=== PATIENT | male | born 1995 | race Caucasian/White ===

== ENCOUNTER 2017-12-28 06:18 | Emergency (ER) | payer SELFPAY ==
--- NOTE | 2017-12-28 06:44 | EDM.PDOC ---
ED HPI GENERAL MEDICAL PROBLEM - General Chief Complaint: ENT Problem Stated Complaint: dental pain Time Seen by Provider: 12/28/17 06:30 Source of Information: Reports: Patient, RN, RN Notes Reviewed History Limitations: Reports: No Limitations - History of Present Illness INITIAL COMMENTS - FREE TEXT/NARRATIVE: Patient presents to the ED at [facility] complaining of dental pain that started 6 days ago. Patient does not see a dentist on a regular basis. Patient complains of swelling of the left lower jaw. No radiation of the pain. No other concerns. Onset Date: 12/22/17 Left Lower Jaw Pain Score (Numeric/FACES): 9 - Related Data Allergies Allergy/AdvReac Type Severity Reaction Status Date / Time No Known Allergies Allergy Verified 12/28/17 06:24 Home Meds: Home Meds Clindamycin HCl 1 cap PO TID 10 Days #30 capsule 12/28/17 [Rx] methylPREDNISolone [Medrol] 1 dosepk PO ASDIRECTED #1 dosepk 12/28/17 [Rx] Past Medical History Psychiatric History: Reports: Anxiety, Dementia - Past Surgical History HEENT Surgical History: Reports: Oral Surgery Social & Family History - Tobacco Use Smoking Status *Q: Never Smoker - Recreational Drug Use Recreational Drug Use: Yes Recreational Drug Type: Reports: Marijuana/Hashish Recreational Drug Use Frequency: Rarely ED ROS ENT - Review of Systems Review Of Systems: See Below Constitutional: Denies: Fever, Chills HEENT: Reports: Dental Pain Respiratory: Denies: Shortness of Breath, Cough Cardiovascular: Denies: Chest Pain, Palpitations Skin: Reports: No Symptoms Neurological: Reports: No Symptoms ED EXAM, ENT - Physical Exam Exam: See Below Exam Limited By: No Limitations General Appearance: Alert, No Apparent Distress Mouth/Throat: Dental Abcess, Dental Pain, Dental Tenderness Respiratory/Chest: No Respiratory Distress, Lungs Clear, Normal Breath Sounds Cardiovascular: Normal Peripheral Pulses, Regular Rate, Rhythm Neurological: Alert, Oriented Skin: Warm, Dry, Intact, Normal Color Course - Vital Signs Last Recorded V/S: Last Vital Signs Temp 36.4 C 12/28/17 06:21 Pulse 109 H 12/28/17 06:21 Resp 16 12/28/17 06:21 BP 136/104 H 12/28/17 06:21 Pulse Ox 99 12/28/17 06:21 Departure - Departure Time of Disposition: 06:52 Disposition: Home, Self-Care 01 Condition: Good Clinical Impression: Dental abscess, Dental caries - Discharge Information *PRESCRIPTION DRUG MONITORING PROGRAM REVIEWED*: Not Applicable *COPY OF PRESCRIPTION DRUG MONITORING REPORT IN PATIENT BENI: Not Applicable Prescriptions: Clindamycin HCl 1 cap PO TID 10 Days #30 capsule methylPREDNISolone [Medrol] 1 dosepk PO ASDIRECTED #1 dosepk Instructions: Dental Abscess, Clindamycin capsules, Methylprednisolone tablets Forms: ED Department Discharge Additional Instructions: 1. Stay well hydrated and rest 2. Take medications for the full coarse, even if you are feeling better 3. Do warm salt water gargles to help with pain 4. Use antiseptic mouth wash 5. See a dentist [email or web address] 6. May use Tylenol/Advil for pain 7. Call with any questions or concerns - Problem List Review Problem List Initiated/Reviewed/Updated: Yes
== END 2017-12-28 07:07 | disposition home or self-care (01) ==
LOC: VM.ED 06:18
DX: K04.7 Periapical abscess without sinus (principal); K02.9 Dental caries, unspecified
CPT/HCPCS: 99282; 99283-GF

== ENCOUNTER 2024-10-16 14:34 | Emergency (ER) | payer SELFPAY | END 2024-10-16 14:56 | disposition home or self-care (01) | LOC: VM.ED 14:34 | DX: J06.9 Acute upper respiratory infection, unspecified (principal); B97.89 Other viral agents as the cause of diseases classified elsewhere | CPT/HCPCS: 99283 ==